=== PATIENT | female | born 1960 | race Caucasian/White ===

== ENCOUNTER → 2016-06-22 | Outpatient (CLI) | payer BC ==
[~2016-06-22] MED LIST: ASPEC81 PO; B-COCAP2 PO; Iron Supplement PO; MULT-506 PO; OSTEO BI FLEX PO
--- NOTE | 2016-06-22 07:49 | DIAGNOSTIC IMAGING REPORT ---
CHEST 2 VIEWS ROUTINE HISTORY: R07.89 Anterior chest wall [id number] COMPARISON: Chest 10/24/2010. FINDINGS: The lungs are clear. Cardiac silhouette is normal in size. No pleural effusions. No pneumothorax. IMPRESSION: No acute process. Electronically signed by: Elmer Maynard M.D. 06/22/2016 7:47 AM Dictated Date/Time: 06/22/2016 7:45 AM
--- NOTE | 2016-06-22 08:02 | DIAGNOSTIC IMAGING REPORT ---
BILIARY ULTRASOUND CLINICAL HISTORY: Right upper quadrant abdominal pain COMPARISON STUDY: October 2010 FINDINGS: The pancreas appears sonographically normal. The liver appears sonographically normal. There is no right-sided hydronephrosis. The gallbladder appears sonographically normal. There is no ductal dilatation. The common bile duct measures 4 mm. IMPRESSION: Normal biliary ultrasound. Electronically signed by: Elver Alfonso M.D. 06/22/2016 8:00 AM Dictated Date/Time: 06/22/2016 7:59 AM
[2016-06-22 09:54] LABS: CHOLESTEROL/HDL RATIO 2.1
== END | disposition home or self-care (01) ==
LOC: C.ULTR 07:06
PROVIDERS: ATTEND Nurse Practitioner Adult Health
DX: Z11.59 Encounter for screening for other viral diseases (principal); Z13.220 Encounter for screening for lipoid disorders; R07.89 Other chest pain; R10.11 Right upper quadrant pain